=== PATIENT | male | born 1965 | race Caucasian/White ===

== ENCOUNTER 2022-10-12 05:34 | Outpatient (CLI) | payer BC ==
[~2022-10-12] VITALS: Ht 177.8 cm; Wt 104.5 kg
[2022-10-16] MEDS ORDERED: INSU100V5 SQ (10:41)
[2022-10-16] MEDS ORDERED: ASPI-999 PO (10:41)
[2022-10-16] MEDS ORDERED: LISI10TA25 PO (10:41)
[2022-10-16] MEDS ORDERED: DOXY100T2 PO (10:41)
[2022-10-16] MEDS ORDERED: ATOR80TA76 PO (10:41)
[2022-10-16] MEDS ORDERED: DAPA10TA PO (10:41)
== END 2022-10-16 10:42 | disposition home or self-care (01) ==
LOC: PREOP 05:34
PROVIDERS: ATTEND Podiatrist Foot & Ankle Surgery
DX: Z01.818 Encounter for other preprocedural examination (principal)

== ENCOUNTER 2022-10-20 10:33 | Day surgery (SDC) | payer BC ==
[~2022-10-20] VITALS: Ht 177 cm; Wt 104.5 kg
[2022-10-20] VITALS (9 sets, daily range): BP systolic 105–140; BP diastolic 62–82
[~2022-10-20 10:33] MED LIST: ASPI-999 PO; ATOR80TA76 PO; DAPA10TA PO; DOXY100T2 PO; INSU100V5 SQ; LISI10TA25 PO
[2022-10-20] MEDS ORDERED: BUPIVACAINE 0.5% 30 ML (SENSORCAINE) VIAL ONE (11:26)
[2022-10-20] MEDS ORDERED: LIDOCAINE 1% INJ 20 ML VIAL ONE (11:26)
[2022-10-20] MEDS ORDERED: LACTATED RINGERS 1,000 ML IV PRN (11:45)
[2022-10-20] MEDS ORDERED: VANCOMYCIN INJECTION 1,000 MG in NS (IVPB) 250 ML IV ONE (11:45)
[2022-10-20] MEDS ORDERED: VANCOMYCIN 1000 MG/VIAL ONE (11:46)
[2022-10-20] MEDS ORDERED: NS (IVPB) 250 ML ONE (11:46)
[2022-10-20] MEDS ORDERED: LIDOCAINE PF 2% 5 ML (XYLOCAINE) VIAL ONE (12:08)
[2022-10-20] MEDS ORDERED: SEVOFLURANE (ULTANE) 15 ML INHAL SOLN ONE (12:08)
[2022-10-20] MEDS ORDERED: ONDANSETRON 4 MG/2 ML (SDV) Z0FRAN ONE (12:08)
[2022-10-20] MEDS ORDERED: fentaNYL INJ 100 MCG/2 ML AMP ONE (12:08)
[2022-10-20] MEDS ORDERED: proPOfol 200 MG/20 ML (DIPRIVAN) VIAL IV ONE (12:08)
[2022-10-20] MEDS ORDERED: MIDAZOLAM 2 MG/2 ML (VERSED) VIAL ONE (12:08)
--- NOTE | 2022-10-20 12:53 | Progress Note-Pre Operative ---
Pre-Operative Progress Note Date of Available H&P: Oct 20, 2022 Date H&P Reviewed: Oct 20, 2022 Time H&P Reviewed: 12:53 Pre-Operative Diagnosis: Osteomyelitis left 2nd toe STEPAN CHAMBERLAIN DPM Oct 20, 2022 12:53
[2022-10-20] MEDS ORDERED: PROPOFOL INJECTION 50 ML IV ONE (13:06)
[2022-10-20] MEDS ORDERED: BUPIVACAINE 0.5% 30 ML (SENSORCAINE) VIAL INJ ONE (13:24)
[2022-10-20] MEDS ORDERED: LIDOCAINE 1% INJ 20 ML VIAL INJ ONE (13:25)
--- NOTE | 2022-10-20 13:39 | Anesthesia-General Post-Op ---
MAC Patient Condition Mental Status/LOC: Same as Preop Cardiovascular: Satisfactory Nausea/Vomiting: Absent Respiratory: Satisfactory Pain: Controlled Complications: Absent Post Op Complications Complications None Follow Up Care/Instructions Patient Instructions None needed. Anesthesiology Discharge Order Discharge Order Patient is doing well, no complaints, stable vital signs, no apparent adverse anesthesia problems. No complications reported per nursing. DON LA CRNA Oct 20, 2022 13:39
--- NOTE | 2022-10-20 13:42 | Progress Note-Post Operative ---
Post-Operative Progess Note Surgeon (s)/Make Up Operator Helper (s) Surgeon STEPAN CHAMBERLAIN DPM Make Up Operator Helper: none Pre-Operative Diagnosis Osteomyelitis left 2nd toe Post-Operative Diagnosis Same Procedure & Operative Findings Date of Procedure 10/20/22 Procedure Performed/Findings Partial amputation of the left 2nd toe Anesthesia Type MAC Estimated Blood Loss Estimated blood loss (mL): Minimal Specimens/Packing Specimens Removed distal left 2nd toe Packing: none STEPAN CHAMBERLAIN DPM Oct 20, 2022 13:42
[2022-10-20] MEDS ORDERED: fentaNYL INJ 100 MCG/2 ML AMP IVP ONE (13:45)
[2022-10-20] MEDS ORDERED: MEPERIDINE (DEMEROL) INJ 50 MG/ML IVP ONE (13:45)
[2022-10-20] MEDS ORDERED: morphine INJ 10 MG/ML 1ML (SYR OR VIAL) IVP ONE (13:45)
[2022-10-20] MEDS ORDERED: LACTATED RINGERS 1,000 ML IV SCH (13:45)
[2022-10-20] MEDS ORDERED: HYDROcodone/APAP 5 MG/325 MG (LORTAB) TAB PO PRN (13:45)
[2022-10-20] MEDS ORDERED: ONDANSETRON 4 MG/2 ML (SDV) Z0FRAN IVP PRN (13:45)
[2022-10-20] MEDS ORDERED: ACHD5005 PO (13:46)
--- NOTE | 2022-10-20 14:56 | Physical Therapy Ortho Eval ---
PT Orthopedic Evaluation Type of Surgery Osteomyelitis left 2nd toe Prior Level of Function Current Living Status: Significant Other Locomotion (Upon Admit): Independent Subjective Subjective Patient in bed pre tx, agrees to PT, has no pain. Entry Into Home: Stairs With Railing Steps Into Home: 2 Motor Control Motor Control: Motor Control WNL ROM ROM: WFL Transfer SCALE: Activities may be completed with or without assistive devices. 5-Oxpvhviegf-ficsxvh completes the activity by him/herself with no assistance from a helper. 5-Set-up or Clean-up Assistance-helper sets up or cleans up; patient completes activity. [place] assists only prior to or following the activity. 4-Supervision or Touching Assistance-helper provides verbal cues and/or touching/steadying and/or contact guard assistance as patient completes activity. Assistance may be provided throughout the activity or intermittently. 3-Partial/Moderate Assistance-helper does LESS THAN HALF the effort. [place] lifts, holds or supports trunk or limbs, but provides less than half the effort. 2-Substantial/Maximal Assistance-helper does MORE THAN HALF the effort. [place] lifts or holds trunk or limbs and provides more than half the effort. 4-Dpasyjvnb-ruyevc does ALL the effort. Patient does none of the effort to complete the activity. Or, the assistance of 2 or more helpers is required for the patient to complete the activity. If activity was not attempted, code reason: 7-Patient Refused. 9-Not Applicable-not attempted and the patient did not perform the activity before the current illness, exacerbation or injury. 10-Not Attempted due to Environmental Limitations-(lack of equipment, weather restraints, etc.). 88-Not Attempted due to Medical Conditions or Safety Concerns. Transfers (B, C, W/C) (QC): 4 Gait Right Lower Extremity: Right Weight Bearing Status RLE: Full Weight Bearing Left Lower Extremity: Left Weight Bearing Status LLE: Partial Weight Bearing Summary/Comments Patient ambulated 70' with axillary crutches with CGA and cues for safety, patient also went up and down 1 step using crutches with CGA and cues for foot placement Treatment Rendered Treatment: Therapeutic Exercises, Gait Train, Step Train Exercise Instruction: Heel Slides, Ankle Pumps Assessment/Goals Goal Time Frame: 1 Visit Understands HEP: Yes Safe Ambulation: Yes Plan Treatment Plan: Discharge PT/Family Agrees to Plan: Yes Time Time In: 1435 Time Out: 1445 Total Billed Treatment Time: 10 Billed Treatment Time 1 visit EVL 10' JEFF FLOWERS PT Oct 20, 2022 14:56
--- NOTE | 2022-10-20 17:26 | Diagnostic Imaging Report ---
INDICATION: Postop left foot surgery. AP, oblique, and lateral views of the left foot are obtained. There is no prior study for comparison. There has been amputation of the 2nd and 3rd digits at the level of the PIP joints. There is marked degenerative change of the 1st MTP joint. There is chronic cortical thickening of the proximal shafts of the metatarsals, which may represent old injury. There is diffuse irregularity throughout the tarsal bones, which may represent neuropathic joint. IMPRESSION: Extensive chronic changes of the left foot with amputation of the 2nd and 3rd digits at the level of the PIP joints. There is no unexpected radiopaque foreign body. Dictated by: Dictated on workstation # [id number]
--- NOTE | 2022-10-20 21:51 | OPERATIVE REPORT ---
DATE OF SERVICE: 10/20/2022 SURGEON: Justina Galvez DPM PREOPERATIVE DIAGNOSIS: Osteomyelitis, left second toe. POSTOPERATIVE DIAGNOSIS: Osteomyelitis, left second toe. PROCEDURE: Partial amputation, left second toe. WOUND CLASS: Contaminated. ANESTHESIA: Monitored anesthesia care. HEMOSTASIS: Pneumatic ankle tourniquet at 250 mmHg. INDICATIONS: This is a 57-year-old male presents with a chronic wound to the distal portion of the left second toe. Conservative therapy has met with unsatisfactory results. He was unable to stay off the foot or resolve the ulceration, eventually ending up with some bone infection confirmed by MRI. He was agreeable to the surgical intervention after risks and complications that were discussed at length. No guarantees were extended to the patient and he is willing to proceed. DESCRIPTION OF PROCEDURE: The patient was brought back to the operating table and placed in secure supine position. Appropriate time-out was performed. Local anesthetic was then induced utilizing aseptic technique utilizing a 1:1 mixture of 1% Xylocaine and 0.5% Marcaine for 14 mL in total for a digital block of the left second ray. Left foot was then prepped and draped in normal sterile manner. The left foot was then elevated, allowed to exsanguinate after which the ankle tourniquet was inflated to 250 mmHg. Attention was then directed to the left second toe where an incision was created overlying the proximal portion of the middle phalanx from medial to lateral. Next, the incision was extended from the beginning and end point in a distal curvilinear fashion creating a plantar flap. The incision was deepened down to bone. The distal interphalangeal joint was disarticulated and the distal phalanx was sent for gross and microscopic evaluation. Prior to this, however, a small portion of the bone was taken for culture and sensitivity. Attention was then directed to the middle phalanx of the left second toe where the integrity of the bone was found to be within normal limits. There was some irregularity; however, to the shape and contour of the distal portion of the middle phalanx and was then decided that the middle phalanx was then also be taken and sent for gross and microscopic evaluation. The other reason for taking of the middle phalanx is the severe rigid contracture noted at the proximal interphalangeal joint. Without the middle phalanx, there is less risk of further complications due to a hammertoe resulting in a pressure point. Once the middle phalanx was disarticulated at the proximal interphalangeal joint, the flexor and extensor tendons were cut as proximally as possible. No other abnormalities were identified. The remaining wound was power irrigated with 1000 mL of normal saline. The swab culture was taken to confirm a septic area before closure. Closure was then performed utilizing a simple interrupted type stitch with a 4-0 Prolene. The tourniquet was released and appropriate capillary refill time was noted to all digits including the left second toe. Postoperative dressing consisted of Betadine-soaked Adaptic, sterile 4 x 4's, sterile Kerlix, all secured with a Coban wrap. The patient was given postoperative instructions to keep the dressing dry, clean, and intact. He was given instructions to continue with the doxycycline orally. He was also given a prescription for Vicodin postoperatively. He is to be partial weightbearing with heel contact only with utilization of crutches and a surgical splint shoe. We will see her back in the office in 10 days period of time or sooner if necessary. Job ID: [id number] DocumentID: [id number] Dictated Date: 10/20/2022 13:53:58 Executive Compensation Analyst Date: 10/20/2022 21:50:00 Dictated By: KI GALVEZ
== END 2022-10-20 14:45 | disposition home or self-care (01) ==
LOC: SDC 10:33
PROVIDERS: ATTEND Podiatrist Foot & Ankle Surgery
DX: E11.69 Type 2 diabetes mellitus with other specified complication (principal); M86.8X7 Other osteomyelitis, ankle and foot; L97.522 Non-pressure chronic ulcer of other part of left foot with fat layer exposed; E66.9 Obesity, unspecified; I10 Essential (primary) hypertension; E78.2 Mixed hyperlipidemia; I65.23 Occlusion and stenosis of bilateral carotid arteries; Z79.4 Long term (current) use of insulin; Z79.899 Other long term (current) drug therapy; Z68.33 Body mass index [BMI] 33.0-33.9, adult
CPT/HCPCS: 73620; 82947; 87070; 87075; 87077; 87081; 87205

== ENCOUNTER → 2022-10-26 | Outpatient (CLI) | payer BC ==
[~2022-10-26] MED LIST changes: +ACHD5005 PO
== END ==
LOC: CARD 10:06
PROVIDERS: ATTEND Internal Medicine Cardiovascular Disease
DX: I11.9 Hypertensive heart disease without heart failure (principal); I35.1 Nonrheumatic aortic (valve) insufficiency; I25.10 Atherosclerotic heart disease of native coronary artery without angina pectoris; I65.23 Occlusion and stenosis of bilateral carotid arteries
CPT/HCPCS: 93306

== ENCOUNTER → 2022-11-22 | Outpatient (CLI) | payer BC ==
[~2022-11-22] VITALS: Ht 177 cm; Wt 105.0 kg
[~2022-11-22] MED LIST changes: +CATHETER FLUSH 10 ML SYR IVP PRN; +REGADENOSON 0.4 MG/5 ML SYR (LEXISCAN) IV ONE
[2022-11-22 09:13] VITALS: BP 128/86
--- NOTE | 2022-11-22 14:02 | Cardiology Stress Test Report ---
Stress Test Report Date of Procedure/Referring: Date of Procedure: Nov 22, 2022 PCP No,Local Physician Admitting Physician Admitting Physician: Attending Physician: Juan Chavira MD Baseline Heart Rate: 72 Baseline Blood Pressure: Blood Pressure Systolic: 128 Blood Pressure Diastolic: 86 Baseline Vitals Vital Signs Date Time Temp Pulse Resp B/P (MAP) Pulse Ox O2 Delivery O2 Flow Rate FiO2 11/22/22 09:13 72 128/86 (100) Baseline EKG: Baseline EKG: NSR Summary After explaining the procedure to the patient, he signed a consent and then brought to the stress nuclear laboratory. Patient received 0.4 mg Lexiscan for stress test, ECG, heart rate and blood pressure were monitored continuously. Resting and stress dose of radio tracer were injected, imaging was acquired and reviewed in short axis, horizontal long axis and vertical long axis views. TID: 1.02 SSS: 4 SDS: 1 EF: 57 Patient tolerated Lexiscan well Mild decrease uptake at the mid to apical anterolateral wall with mild reversibility Normal left ventricular size, ejection fraction 57% Copy Copies To 1: [facility] [place] CHAVIRA MD Nov 22, 2022 14:02
== END ==
LOC: CARD 08:15
PROVIDERS: ATTEND Internal Medicine Cardiovascular Disease
DX: I10 Essential (primary) hypertension (principal); I25.10 Atherosclerotic heart disease of native coronary artery without angina pectoris
CPT/HCPCS: 78452; 93017

== ENCOUNTER 2022-12-01 11:00 | Day surgery (SDC) | payer BC ==
[2022-12-01] VITALS (10 sets, daily range): BP systolic 117–157; BP diastolic 76–90
[~2022-12-01] VITALS: Ht 177 cm; Wt 108.0 kg
[2022-12-01 09:51] LABS: BILIRUBIN,URINE NEGATIVE (NEGATIVE); CLARITY,URINE CLEAR; COLOR,URINE YELLOW; GLUCOSE, URINE (UA) 3+ (NEGATIVE); KETONES,URINE NEGATIVE (NEGATIVE); LEUKOCYTE ESTERASE ,URINE NEGATIVE (NEGATIVE); NITRITE,URINE NEGATIVE (NEGATIVE); PH,URINE 5.5 (5-9); PROTEIN,URINE TRACE (NEGATIVE)
[2022-12-01 09:54] LABS: HEMATOCRIT 44 % (40-54); HEMOGLOBIN 14.9 g/dL (13.3-17.7); MEAN CORPUSCULAR HEMOGLOBIN 29 pg (25-34); MEAN CORPUSCULAR HGB CONC 34 g/dL (32-36); MEAN CORPUSCULAR VOLUME 86 fL (80-99); MEAN PLATELET VOLUME 10.3 fL (9.0-12.2); PLATELET COUNT 149 10^3/uL (130-400); WHITE BLOOD COUNT 4.8 10^3/uL (4.3-11.0)
[2022-12-01 10:02] LABS: INR 0.9 (0.8-1.4); PROTHROMBIN TIME PATIENT 12.8 SEC (12.2-14.7)
[2022-12-01 10:04] LABS: BACTERIA,URINE NEGATIVE /HPF; RBC,URINE RARE /HPF; SQUAMOUS EPITHELIAL CELL,UR RARE /HPF
--- NOTE | 2022-12-01 10:04 | Diagnostic Imaging Report ---
EXAM: CHEST 1 VIEW, AP/PA ONLY INDICATION: Coronary artery disease. Abnormal stress test. COMPARISON: None. FINDINGS: Normal heart size and central pulmonary vascularity. Lungs are clear. No pleural effusion or pneumothorax. No acute osseous findings. IMPRESSION: No acute cardiopulmonary findings. Dictated by: Dictated on workstation # [id number]
[2022-12-01 10:11] LABS: ALBUMIN 4.1 GM/DL (3.2-4.5); BILIRUBIN,TOTAL 0.8 MG/DL (0.1-1.0); CALCIUM 9.5 MG/DL (8.5-10.1); CREATININE SERUM 0.87 MG/DL (0.60-1.30); POTASSIUM 3.8 MMOL/L (3.6-5.0); TOTAL PROTEIN 7.3 GM/DL (6.4-8.2)
--- NOTE | 2022-12-01 10:47 | Cardiac Procedure Note-CS/ASA ---
Pre-Procedure Note Pre-Op Procedure Note Date of Available H&P: Nov 27, 2022 Date H&P Reviewed: Dec 01, 2022 Time H&P Reviewed: 10:46 History & Physical: H&P Reviewed, Patient Examed, No changes noted Pre-Operative Diagnosis: Osteomyelitis left 2nd toe, coronary artery disease, PAD Conscious Sedation Pre-Proced Time 10:46 ASA Score 3 For ASA 3 and 4: Consider anesthesia and medical clearance. Also, for patients with a history of failed moderate sedation consider anesthesia. Airway Lungs Heart ASA score ASA 1: a normal healthy patient ASA 2: a patient with a mild systemic disease (mid diabetes, controlled hypertension, obesity ASA 3: a patient with a severe systemic disease that limits activity (angina, COPD, prior Myocardial infarction) ASA 4: a patient with an incapacitating disease that is a constant threat to life (CHF, renal failure) ASA 5: a moribund patient not expected to survive 24 hrs. (ruptured aneurysm) ASA 6: a declared brain- patient whose organs are being harvested. For emergent operations, add the letter E after the classification Mallampati Classification Grade 3 Sedation Plan Analgesia, Amnesia, Plan communicated to team members, Discussed options with patient/fam, Discussed risks with patient/fam The patient is an appropriate candidate to undergo the planned procedure, sedation, and anesthesia. The patient immediately re-assessed prior to indication. JUAN JACOME MD Dec 01, 2022 10:47
[~2022-12-01 11:00] MED LIST changes: -CATHETER FLUSH 10 ML SYR IVP PRN; +CHRO400T10 PO; +CINN500C2 PO; +HEParin (CATH LAB) 2,000 ML IV ONE; +LIDOCAINE 1% INJ 20 ML VIAL ONE; +LISI20TA26 PO; +MIDAZOLAM 5 MG/5 ML (VERSED) VIAL ONE; +MULT-1136 PO; +NITRO DRIP 25000 MCG/D5W 0 ML IV ONE; +NS IV 1000 ML 1,000 ML IV ONE; +NS IV 1000 ML 1,000 ML ONE; +OMEG100032 PO; -REGADENOSON 0.4 MG/5 ML SYR (LEXISCAN) IV ONE; +fentaNYL INJ 100 MCG/2 ML AMP ONE
--- NOTE | 2022-12-01 11:50 | Discharge Inst-Post CATH ---
Discharge Inst-CATH/EP Problems Reviewed?: Yes Post Cardiac Cath/EP D/C Inst Follow Up/Plan Appointment with Dr. Chavira's office in 4 to 6 weeks <b>CARDIAC CATH/EP PROCEDURE DISCHARGE INSTRUCTIONS</b> ACTIVITY * Go Home directly and rest. * Limit activity of the leg (or wrist if it was used) for 7 days including aer obics, swimming, jogging, bicycling, etc. * Restrict stair-climbing for 7 days if possible, if not, climb up with your non-cath leg, then bring together on the same step. * Avoid lifting, pushing, pulling or excessive movement of the affected extremi ty for 7 days. * Customary sexual activity may be resumed after 2 days-use caution not to use a position that strains or causes pain to the affected extremity. * No driving for 24 hours. * NO SMOKING. * Avoid straining for bowel movements for 7 days. * Gentle walking on level ground is allowed. * Returning to work will depend on the type of procedure and the results. Your doctor will discuss this with you. CALL YOUR DOCTOR FOR ANY OF THE FOLLOWING: *If bleeding from the puncture site occurs- Apply gentle pressure to site with clean cloth and call your doctor or EMS. * If a knot or lump forms under the skin, increases in size, or causes pain. * If bruising appears to be worsening or moving further down your leg instead of disappearing. * Temperature above 101 F. CARE OF YOUR GROIN INCISION; * Bruising or purple discoloration of the skin near the puncture site is common. * You may shower only, no bathtub bathing for 5 days. Be careful to avoid slipping as your leg may feel stiff. * If a closure device was used on your femoral artery, please see the attached guide regarding care of the device and your leg. * Leave dressing on FOR 24 hours. CARE OF YOUR WRIST INCISION; * Bruising or purple discoloration of the skin near the puncture site is common. * You may shower. * DO NOT submerge wrist. * Leave dressing on FOR 24 hours. JUAN CHAVIRA MD Dec 01, 2022 11:50
--- NOTE | 2022-12-01 11:56 | Cardiac Cath Report ---
Cardiac Cath Report Physician (s)/Glycerin Operator (s) Physician JUAN JACOME MD Pre-Procedure Diagnosis Pre-Procedure Diagnosis: Coronary artery disease, peripheral arterial disease Post-Procedure Note Procedure Start Date: Dec 01, 2022 Name of Procedure: Left heart catheterization Aortic arch angiogram Abdominal aortogram Bilateral lower extremities runoff Second order Additional imaging Findings/Procedure Note PROCEDURE NOTE: 57-year-old gentleman with osteomyelitis of the second left toe, scheduled for amputation, had an abnormal HANNAH. Patient had an abnormal carotid ultrasound suggestive of severe disease at the origin of the right carotid artery. Had an abnormal stress test, scheduled for cardiac catheterization with aortic arch angiogram and peripheral angiogram. After explaining the procedure to the patient, all pros and cons were explained, all questions were answered. The patient signed the consent and then he was placed in the cardiac catheterization laboratory. Groin was prepped in SL fashion local anesthesia was used. Sheath placed in the right femoral artery. Cr' right and left catheter were used to access the coronary system. Pigtail was used to access the left ventricular cavity. Left ventriculogram was not done, pressure was measured Aortic arch angiogram was done Pigtail catheter was placed in the abdominal aorta just above the renal artery and abdominal aortogram was done and evaluated the bifurcation then I used a rim catheter and crossed over to the left common femoral artery and did runoff at the level of the bifurcation and then at the left common femoral artery level and did DSA imaging at the level of the trifurcation and at the level of the foot on the left side On the right side runoff was done through the sheath. At the end of the procedure the sheath was removed. Closure device was deployed FINDINGS: Hemodynamics LV 129/13, end-diastolic pressure of 13 Aorta 117/71 mean of 86 ANATOMY: Left Main is free of obstructive disease Left Anterior Descending is slightly tortuous artery with mild disease nonobstructive disease Left Circumflex has mild disease nonobstructive disease Right Coronary Artery is large dominant artery with mild disease at the midportion, there is slow flow in the right coronary artery probably due to small vessel disease LV Gram was not done, pressure was measured Aorta evaluation done with aortic arch angiogram showing normal aortic arch, no dissection or aneurysm, normal origin of the brachiocephalic artery, left carotid and left subclavian artery with no abnormality Abdominal aortogram was done in the AP position. Abdominal aorta is normal in size. No dissection or aneurysm, normal origin of the right and left renal artery, normal SMA and CAMPBELL. Normal bifurcation Right lower extremity: Angiogram was done through the sheath showing mild disease down to the trifurcation with no obstructive disease Left lower extremity: Angiogram was done at the level of the bifurcation and then placing the catheter in the left common femoral artery, there is good flow down to the trifurcation below the trifurcation there is mild disease nonobstructive disease down to the foot CONCLUSION: Dominant right coronary system with mild small vessel disease in the right system with slow flow otherwise nonobstructive disease Normal left ventricular end-diastolic pressure Normal aortic arch and great vessels of the neck Normal abdominal aorta, renal arteries Normal runoff to the lower extremities down to the foot on the left and down to the trifurcation on the right. DISCUSSION AND RECOMMENDATION: Nonhealing ulcer is probably infectious in addition to small vessel disease. Abnormal stress test is probably due to small vessel disease in the right coronary artery, medical therapy is recommended Anesthesia Type: Conscious Sedation Estimated blood loss (mL): 15 ml Contrast Amount: 66 ml Total Radiation Dose: 598 mGy Post-Procedure Diagnosis Post-operative diagnosis: Coronary artery disease Peripheral arterial disease Hypertension Hyperlipidemia JUAN JACOME MD Dec 01, 2022 11:56
[2022-12-01] MEDS ORDERED: NS IV 1000 ML 1,000 ML IV SCH (12:00)
[2022-12-01] MEDS ORDERED: PATIENT MAY USE OWN MEDS, ALL PO SCH (12:00)
[2022-12-01] MEDS ORDERED: fentaNYL INJ 100 MCG/2 ML AMP IVP PRN (12:15)
== END 2022-12-01 16:15 ==
LOC: CATH 11:00 → SDC 12:11 → CATH 16:15
PROVIDERS: ATTEND Internal Medicine Cardiovascular Disease
DX: I25.10 Atherosclerotic heart disease of native coronary artery without angina pectoris (principal); I73.9 Peripheral vascular disease, unspecified; I10 Essential (primary) hypertension; I65.23 Occlusion and stenosis of bilateral carotid arteries; S91.105A Unspecified open wound of left lesser toe(s) without damage to nail, initial encounter; E78.5 Hyperlipidemia, unspecified; E11.9 Type 2 diabetes mellitus without complications; Z79.899 Other long term (current) drug therapy; Z79.84 Long term (current) use of oral hypoglycemic drugs; Z90.89 Acquired absence of other organs
CPT/HCPCS: 36221; 36246; 36248; 36415; 71045; 75625; 75716; 80053; 80061; 81000; 85027; 85610; 85730; 87081; 93458